=== PATIENT | male | born 1985 | race African-American/Black ===

== ENCOUNTER 2018-10-05 01:31 | Emergency (ER) | payer SELFPAY ==
[~2018-10-05] VITALS: Ht 188 cm; Wt 86.0 kg
[2018-10-05] MEDS ORDERED: LIDOCAINE HCL 2% JELLY 5ML TOP ONE (07:00)
[2018-10-05] MEDS ORDERED: HYDROCODONE/ACETAMINOPHEN 5/325MG TABLET PO ONE (07:00)
[2018-10-05] MEDS ORDERED: LIDOCAINE HCL/PF 1% 10 MG/ML 5ML VIAL IJ ONE (07:00)
[2018-10-05] MEDS ORDERED: BACITRACIN ZINC OINT UDPKT TOP ONE (07:00)
[2018-10-05 09:11] VITALS: BP 130/85
== END 2018-10-05 09:12 | disposition home or self-care (01) ==
LOC: ER 01:31
DX: S01.111A Laceration without foreign body of right eyelid and periocular area, initial encounter (principal); M25.561 Pain in right knee; M54.2 Cervicalgia; V89.2XXA Person injured in unspecified motor-vehicle accident, traffic, initial encounter; Y93.89 Activity, other specified; Y92.89 Other specified places as the place of occurrence of the external cause; Y99.8 Other external cause status
CPT/HCPCS: 12011; 70450; 73110; 99284; J3490